=== PATIENT | male | born 1945 | race Caucasian/White ===

== ENCOUNTER → 2017-02-23 | Outpatient (CLI) | payer OTHER, MEDICARE | LOC: KOH-I 15:26 | DX: R10.9 Unspecified abdominal pain (principal); N28.9 Disorder of kidney and ureter, unspecified | CPT/HCPCS: 74176 ==

== ENCOUNTER → 2017-03-15 | Outpatient (CLI) | payer MEDICARE | LOC: KOH-I 03-05 10:00 | DX: N28.89 Other specified disorders of kidney and ureter (principal); N28.1 Cyst of kidney, acquired | CPT/HCPCS: 74170; Q9965 ==

== ENCOUNTER → 2017-03-15 | Outpatient (CLI) | payer MEDICARE | LOC: OPSV 13:27 | DX: E86.0 Dehydration (principal) | CPT/HCPCS: 96360; J7030 ==

== ENCOUNTER → 2017-03-19 | Outpatient (CLI) | payer MEDICARE | LOC: LAB 09:39 | PROVIDERS: Internal Medicine | DX: N18.9 Chronic kidney disease, unspecified (principal) | CPT/HCPCS: 36415; 80048 ==

== ENCOUNTER → 2021-02-27 | Outpatient (CLI) | payer MEDICARE ==
[~2021-02-27] MED LIST: BRILINTA90 MG PO; BUSPAR 10MG10 MG PO; DOXAZOSIN MESYLA1 MG PO; ELIQUIS5 MG PO; FARXIGA10 MG PO; FLONASE 0.05% N16 GM; LIPITOR80 MG PO; LOTREL 5-20 MG1 EACH PO; PROTONIX 40 MG40 M1 PO; SILODOSIN4 MG PO; TIKOSYN125 MCG PO; TRULICITY1.5 MG/0.5 SQ; VASCAZEN CAPSU1 EACH PO; VASCEPA1 GM PO; VIBRAMYCIN100 MG PO; VITAMIN C500 M4 PO; VITAMIN D325 MC6 PO; WELLBUTRIN XL300 M1 PO; ZOLOFT50 MG PO
== END ==
LOC: US 15:16
DX: N18.31 Chronic kidney disease, stage 3a (principal); N28.89 Other specified disorders of kidney and ureter

== ENCOUNTER 2021-03-03 14:24 | Inpatient (IN) | payer MEDICARE ==
[~2021-03-03] VITALS: Ht 185.4 cm; Wt 54.9 kg
[2021-03-03 15:43] LABS: HEMOGLOBIN 13.6 gm/dl (14.0-17.5); RED BLOOD COUNT 4.43 M/UL (4.20-5.50); WHITE BLOOD COUNT 11.5 K/UL (4.5-11.0)
[2021-03-03 16:17] LABS: BUN/CREATININE RATIO 19 (0-10)
[2021-03-03] MEDS ORDERED: BRILINTA90 MG PO (23:18)
[2021-03-03] MEDS ORDERED: LOTREL 5-20 MG1 EACH PO (23:18)
[2021-03-03] MEDS ORDERED: ELIQUIS5 MG PO (23:18)
[2021-03-03] MEDS ORDERED: FARXIGA10 MG PO (23:20)
[2021-03-03] MEDS ORDERED: LIPITOR80 MG PO (23:20)
[2021-03-03] MEDS ORDERED: BUSPAR 10MG10 MG PO (23:21)
[2021-03-03] MEDS ORDERED: PROTONIX 40 MG40 M1 PO (23:21)
[2021-03-03] MEDS ORDERED: ZOLOFT50 MG PO (23:22)
[2021-03-03] MEDS ORDERED: WELLBUTRIN XL300 M1 PO (23:22)
[2021-03-03] MEDS ORDERED: VASCAZEN CAPSU1 EACH PO (23:23)
[2021-03-03] MEDS ORDERED: SILODOSIN4 MG PO (23:24)
[2021-03-03] MEDS ORDERED: DOXAZOSIN MESYLA1 MG PO (23:25)
[2021-03-04 02:42] LABS: RED BLOOD COUNT 3.56 M/UL (4.20-5.50); WHITE BLOOD COUNT 19.1 K/UL (4.5-11.0)
[2021-03-04] MEDS ORDERED: VITAMIN D325 MC6 PO (08:33)
[2021-03-04] MEDS ORDERED: TIKOSYN125 MCG PO (08:38)
[2021-03-04] MEDS ORDERED: VASCEPA1 GM PO (08:41)
[2021-03-04] MEDS ORDERED: VIBRAMYCIN100 MG PO (08:43)
[2021-03-04 15:24] LABS: ACINETOBACTER BAUMANNII Not Detected (Negative); CANDIDA ALBICANS Not Detected (Negative); CANDIDA KRUSEI Not Detected (Negative); CANDIDA TROPICALIS Not Detected (Negative); ENTEROCOCCUS Not Detected (Negative); ESCHERICHIA COLI Not Detected (Negative); HAEMOPHILUS INFLUENZAE Not Detected (Negative); KLEBSIELLA OXYTOCA Not Detected (Negative); KLEBSIELLA PNEUMONIAE Not Detected (Negative); KPC-CARBAPENEM-RESISTANCE GENE Not Detected (Negative); PROTEUS Not Detected (Negative); PSEUDOMONAS AERUGINOSA Not Detected (Negative); STAPHYLOCOCCUS Not Detected (Negative); STAPHYLOCOCCUS AUREUS Not Detected (Negative); STREP AGALACTIAE (GROUP B) Not Detected (Negative); STREP PYOGENES (GROUP A) Not Detected (Negative); STREPTOCOCCUS Not Detected (Negative); mecA (METHICILLIN RESIST GENE Not Detected (Negative); vanA/B (VANCOMYCIN RESIST GENE Not Detected (Negative)
--- NOTE | 2021-03-04 15:38 | NUR ---
reported to dr. gupta blood culture results and she acknowledged
[2021-03-04 16:43] LABS: SERRATIA MARCESANS DETECTED (Negative)
--- NOTE | 2021-03-04 18:02 | NUR ---
report given to [facility] admitting nurse.
[2021-03-04] MEDS ORDERED: TRULICITY1.5 MG/0.5 SQ (23:19)
[2021-03-04] MEDS ORDERED: FLONASE 0.05% N16 GM (23:27)
[2021-03-04] MEDS ORDERED: VITAMIN C500 M4 PO (23:27)
== END 2021-03-04 22:25 | disposition short-term general hospital (02) | DRG 871 ==
LOC: ER1 14:24 → CDU 19:16 → M/S 19:16
PROVIDERS: Internal Medicine; Physician Assistant; ADMIT Internal Medicine
DX: A41.9 Sepsis, unspecified organism (principal); G93.41 Metabolic encephalopathy; N39.0 Urinary tract infection, site not specified; I42.9 Cardiomyopathy, unspecified; N17.9 Acute kidney failure, unspecified; I50.22 Chronic systolic (congestive) heart failure; E44.1 Mild protein-calorie malnutrition; Z68.1 Body mass index [BMI] 19.9 or less, adult; Z20.822 Contact with and (suspected) exposure to COVID-19; R65.20 Severe sepsis without septic shock; N41.9 Inflammatory disease of prostate, unspecified; N45.1 Epididymitis; I11.0 Hypertensive heart disease with heart failure; N43.3 Hydrocele, unspecified; I48.91 Unspecified atrial fibrillation; R31.9 Hematuria, unspecified; I25.10 Atherosclerotic heart disease of native coronary artery without angina pectoris; E11.9 Type 2 diabetes mellitus without complications; Z88.6 Allergy status to analgesic agent; I25.2 Old myocardial infarction; Z79.01 Long term (current) use of anticoagulants; Z85.46 Personal history of malignant neoplasm of prostate; Z79.899 Other long term (current) drug therapy; Z87.440 Personal history of urinary (tract) infections; Z86.73 Personal history of transient ischemic attack (TIA), and cerebral infarction without residual deficits; Z79.4 Long term (current) use of insulin
CPT/HCPCS: 36415; 70450; 71045; 76870; 80048; 80053; 81001; 82550; 82553; 82962; 83605; 83735; 83874; 84484; 85025; 87040; 87077; 87086; 87150; 87186; 93005; 97162; 99285; J0692; J7030; Q9965; U0002